=== PATIENT | female | born 1970 | race Caucasian/White ===

== ENCOUNTER → 2019-05-09 08:49 | Outpatient (BNVA) | payer MEDICARE, MEDICAID, SELFPAY | PROVIDERS: Family Provider Family Medicine; PCP Family Medicine; Visit Provider Specialist | DX: G43.711 Chronic migraine without aura, intractable, with status migrainosus (principal) | CPT/HCPCS: 64615; 99212; J0585 ==

== ENCOUNTER → 2019-06-26 10:45 | Outpatient (BNVA) | payer MEDICARE, MEDICAID, SELFPAY | PROVIDERS: Family Provider Family Medicine; PCP Family Medicine; Visit Provider Nurse Practitioner | DX: F41.0 Panic disorder [episodic paroxysmal anxiety] (principal); F33.41 Major depressive disorder, recurrent, in partial remission | CPT/HCPCS: 99213 ==

== ENCOUNTER → 2019-08-12 07:44 | Outpatient (BNVA) | payer MEDICARE, MEDICAID, SELFPAY | PROVIDERS: Family Provider Family Medicine; PCP Family Medicine; Visit Provider Social Worker | DX: F33.41 Major depressive disorder, recurrent, in partial remission (principal); F41.0 Panic disorder [episodic paroxysmal anxiety]; F43.12 Post-traumatic stress disorder, chronic | CPT/HCPCS: 90834 ==

== ENCOUNTER → 2019-08-15 08:56 | Outpatient (BNVA) | payer MEDICARE, MEDICAID, SELFPAY | PROVIDERS: Family Provider Family Medicine; PCP Family Medicine; Visit Provider Specialist | DX: G43.711 Chronic migraine without aura, intractable, with status migrainosus (principal); S06.9X9A Unspecified intracranial injury with loss of consciousness of unspecified duration, initial encounter; X58.XXXA Exposure to other specified factors, initial encounter | CPT/HCPCS: 64615; J0585 ==

== ENCOUNTER → 2019-09-23 08:39 | Outpatient (BNVA) | payer MEDICARE, MEDICAID, SELFPAY | PROVIDERS: Family Provider Family Medicine; PCP Family Medicine; Visit Provider Social Worker | DX: F41.0 Panic disorder [episodic paroxysmal anxiety] (principal); F33.41 Major depressive disorder, recurrent, in partial remission; F43.12 Post-traumatic stress disorder, chronic | CPT/HCPCS: 90834 ==

== ENCOUNTER → 2019-11-07 09:10 | Outpatient (BNVA) | payer MEDICARE, MEDICAID, SELFPAY | PROVIDERS: Family Provider Family Medicine; PCP Family Medicine; Visit Provider Specialist | DX: G43.711 Chronic migraine without aura, intractable, with status migrainosus (principal); S06.9X9A Unspecified intracranial injury with loss of consciousness of unspecified duration, initial encounter; X58.XXXA Exposure to other specified factors, initial encounter | CPT/HCPCS: 64615; J0585 ==

== ENCOUNTER → 2020-01-22 07:36 | Outpatient (BNVA) | payer MEDICARE, MEDICAID, SELFPAY | PROVIDERS: Family Provider Family Medicine; PCP Family Medicine; Visit Provider Nurse Practitioner | DX: F33.41 Major depressive disorder, recurrent, in partial remission (principal); F41.0 Panic disorder [episodic paroxysmal anxiety] | CPT/HCPCS: 99213 ==

== ENCOUNTER → 2020-01-30 09:25 | Outpatient (BNVA) | payer MEDICARE, MEDICAID, SELFPAY | PROVIDERS: Family Provider Family Medicine; PCP Family Medicine; Visit Provider Specialist | DX: G43.711 Chronic migraine without aura, intractable, with status migrainosus (principal); S06.9X9D Unspecified intracranial injury with loss of consciousness of unspecified duration, subsequent encounter | CPT/HCPCS: 64615; J0585 ==

== ENCOUNTER 2020-03-06 09:58 | Outpatient (CLI) | payer MEDICARE, MEDICAID, SELFPAY ==
--- NOTE | 2020-03-06 10:08 | MM_ITS ---
WS: [id number] Bilateral screening digital mammogram, 03/06/2020 Clinical Data: SCREENING Comparison: 11/28/2018, 10/05/2017, 09/16/2016, 09/10/2015, 09/04/2014, 08/07/2013, 07/16/2012, 11/24/2010. Findings: The breast parenchymal pattern shows heterogeneous density. No spiculated masses or clustered calcifi cations are seen. There are no secondary signs of carcinoma. The nodule in the lateral aspect of the left breast has decreased to 1.1 cm. It has been diagnosed as a cyst. There are lymph nodes in both a xilla. Impression: 1. Negative bilateral mammogram unchanged. 2. Recommend annual screening mammograms. MM/[id number] BIRADS: 2-Benign FOLLOW UP: 1 Year Follow-up The CAD food checkers and cashiers supervisor was used.
== END 2020-03-06 09:59 | disposition home or self-care (01) ==
LOC: RADSHAW 10:02
PROVIDERS: Family Provider Family Medicine; PCP Family Medicine; Visit Provider Family Medicine
DX: Z12.31 Encounter for screening mammogram for malignant neoplasm of breast (principal)
CPT/HCPCS: 77067

== ENCOUNTER → 2020-04-30 08:54 | Outpatient (BNVA) | payer MEDICARE, MEDICAID, SELFPAY | PROVIDERS: Family Provider Family Medicine; PCP Family Medicine; Visit Provider Specialist | DX: G43.711 Chronic migraine without aura, intractable, with status migrainosus (principal); S06.9X9D Unspecified intracranial injury with loss of consciousness of unspecified duration, subsequent encounter; Y93.9 Activity, unspecified | CPT/HCPCS: 64615; J0585 ==

== ENCOUNTER → 2020-07-23 09:11 | Outpatient (BNVA) | payer MEDICARE, MEDICAID, SELFPAY | PROVIDERS: Family Provider Family Medicine; PCP Family Medicine; Visit Provider Specialist | DX: G43.709 Chronic migraine without aura, not intractable, without status migrainosus (principal); S06.9X9A Unspecified intracranial injury with loss of consciousness of unspecified duration, initial encounter; Y93.9 Activity, unspecified | CPT/HCPCS: 64615; J0585 ==

== ENCOUNTER → 2020-09-29 11:01 | Outpatient (BNVA) | payer MEDICARE, MEDICAID, SELFPAY | PROVIDERS: Family Provider Family Medicine; PCP Family Medicine; Visit Provider Nurse Practitioner | DX: F33.41 Major depressive disorder, recurrent, in partial remission (principal); F41.0 Panic disorder [episodic paroxysmal anxiety] | CPT/HCPCS: 99214 ==

== ENCOUNTER → 2020-10-15 08:50 | Outpatient (BNVA) | payer MEDICARE, MEDICAID, SELFPAY | PROVIDERS: Family Provider Family Medicine; PCP Family Medicine; Visit Provider Specialist | DX: G43.711 Chronic migraine without aura, intractable, with status migrainosus (principal) | CPT/HCPCS: 64615; J0585 ==

== ENCOUNTER → 2021-01-14 09:45 | Outpatient (BNVA) | payer MEDICARE, MEDICAID, SELFPAY | PROVIDERS: Family Provider Family Medicine; PCP Family Medicine; Visit Provider Specialist | DX: G43.711 Chronic migraine without aura, intractable, with status migrainosus (principal); F33.41 Major depressive disorder, recurrent, in partial remission | CPT/HCPCS: 64615; J0585 ==

== ENCOUNTER → 2021-03-25 10:30 | Outpatient (BNVA) | payer MEDICARE, MEDICAID, SELFPAY | PROVIDERS: Family Provider Family Medicine; PCP Family Medicine; Visit Provider Nurse Practitioner | DX: F33.41 Major depressive disorder, recurrent, in partial remission (principal); F41.0 Panic disorder [episodic paroxysmal anxiety] | CPT/HCPCS: 99214 ==

== ENCOUNTER → 2021-04-08 10:05 | Outpatient (BNVA) | payer MEDICARE, MEDICAID, SELFPAY | PROVIDERS: Family Provider Family Medicine; PCP Family Medicine; Visit Provider Specialist | DX: G43.711 Chronic migraine without aura, intractable, with status migrainosus (principal) | CPT/HCPCS: 64615; J0585 ==

== ENCOUNTER 2021-05-13 11:23 | Outpatient (CLI) | payer MEDICARE, MEDICAID, SELFPAY ==
--- NOTE | 2021-05-13 11:36 | MM_ITS ---
WS: [id number] BILATERAL SCREENING DIGITAL MAMMOGRAM WITH CAD HISTORY: SCREENING COMPARISON: 03/06/2020, 11/28/2018 and 10/05/2017 Bilateral CC and MLO views submitted. Computer aided detection analyzed. Breast composition: The breasts are heterogeneously dense, which may obscure small masses. No suspici ous masses, microcalcifications or architectural distortion. Long-term stability to 10 mm mass in the LEFT breast posteriorly at 3:00. There are additional scattered asymmetries which are stable also. MM/[id number] IMPRESSION: BI-RADS: 2-Benign FOLLOW UP: 1 Year Follow-up
== END 2021-05-13 11:24 | disposition home or self-care (01) ==
LOC: RADSHAW 11:31
PROVIDERS: Family Provider Family Medicine; PCP Family Medicine; Visit Provider Family Medicine
DX: Z12.31 Encounter for screening mammogram for malignant neoplasm of breast (principal)
CPT/HCPCS: 77067

== ENCOUNTER → 2021-07-01 09:33 | Outpatient (BNVA) | payer MEDICARE, MEDICAID, SELFPAY | PROVIDERS: Family Provider Family Medicine; PCP Family Medicine; Visit Provider Specialist | DX: G43.711 Chronic migraine without aura, intractable, with status migrainosus (principal) | CPT/HCPCS: 64615; J0585 ==

== ENCOUNTER → 2021-09-23 09:09 | Outpatient (BNVA) | payer MEDICARE, MEDICAID, SELFPAY | PROVIDERS: Family Provider Family Medicine; PCP Family Medicine; Visit Provider Specialist | DX: G43.711 Chronic migraine without aura, intractable, with status migrainosus (principal) | CPT/HCPCS: 64615; J0585 ==

== ENCOUNTER → 2021-10-07 10:40 | Outpatient (BNVA) | payer MEDICARE, MEDICAID, SELFPAY | PROVIDERS: Family Provider Family Medicine; PCP Family Medicine; Visit Provider Nurse Practitioner | DX: F33.41 Major depressive disorder, recurrent, in partial remission (principal); F41.0 Panic disorder [episodic paroxysmal anxiety] | CPT/HCPCS: 99214 ==

== ENCOUNTER → 2021-12-16 09:32 | Outpatient (BNVA) | payer MEDICARE, MEDICAID, SELFPAY | PROVIDERS: Family Provider Family Medicine; PCP Family Medicine; Visit Provider Specialist | DX: G43.711 Chronic migraine without aura, intractable, with status migrainosus (principal) | CPT/HCPCS: 64615; J0585 ==

== ENCOUNTER 2022-01-07 07:43 | Day surgery (SDC) | payer MEDICARE, MEDICAID, SELFPAY ==
[2022-01-05 15:53] VITALS: BMI 26.4
--- NOTE | 2022-01-07 06:32 | P.HP_ITS ---
Same Day Surgery H&P Indication for Procedure/HPI DATE OF PROCEDURE: January 07, 2022 CHIEF COMPLAINT/INDICATIONFOR SURGICAL PROCEDURE: Screening colonoscopy PREOP DIAGNOSIS: Screening colonoscopy PLANNED PROCEDURE: Operation Date: 01/07/22 09:00 Proposed Procedures p Colonoscopy 90582,Z12.11(Not Applicable) - Abdullahi Desir MD ROS All systems have been reviewed negative except as for the above or per problem list. Medications/Allergies* Home Medications Medication Instructions Recorded Confirmed Type bumetanide 2 mg tablet 2 mg PO DAILY 05/09/19 01/07/22 History loratadine 10 mg tablet (Claritin) 10 mg PO DAILY 05/09/19 01/07/22 History meloxicam 7.5 mg tablet 7.5 mg PO DAILY 05/09/19 01/07/22 History montelukast 10 mg tablet 10 mg PO DAILY 05/09/19 01/07/22 History (Singulair) oxybutynin chloride 5 mg tablet 5 mg PO TID 05/09/19 01/07/22 History simvastatin 10 mg tablet 10 mg PO DAILY 05/09/19 01/07/22 History potassium chloride 20 mEq 20 meq PO DAILY 10/07/21 01/07/22 History tablet,extended release topiramate 50 mg tablet 50 mg PO BID PRN Headache 01/05/22 01/07/22 History clonazepam 0.5 mg tablet 0.5 mg PO BID 01/07/22 01/07/22 History desvenlafaxine succinate 100 mg 100 mg PO DAILY PRN leg swell up 01/07/22 01/07/22 History tablet,extended release 24 hr pretty bad (Pristiq) Allergies/Adverse Reactions Allergy/AdvReac Type Severity Reaction Status Date / Time doxycycline Allergy Unknown Uknown Verified 01/07/22 08:40 Pertinent History/Comorbid Conditions* Medical History (Updated 06/26/19 @ 11:04 by DEBBIE Mendoza) Major depressive disorder, recurrent, in partial remission Panic disorder [episodic paroxysmal anxiety] Family History (Updated 05/09/19 @ 10:15 by Madison Lewis RN) Psychiatric illness Cancer Grandmother Hypertension Social History Smoking and tobacco status: never smoked Second hand smoke exposure: Yes Alcohol intake: never History of recent travel: No Pertinent Exam Findings alert, oriented x 3, clear to auscultation bilaterally, regular rate & rhythm and procedure specific exam findings (Normal exam nontender nondistended soft) Recommendations Surgery/Procedure today (Colonoscopy with possible biopsy) Other Plans: Plan of care; After thorough history and physical examination and reviewing the chart, plan to perform screening colonoscopy. I discussed with the patient in details the risks,benefits,alternatives and indications.The risk of aspiration, bleeding, soft tissue injury, perforation of the colon and other potential concomitant complications were explained to the patient in details,also the potential need for Laproscoy/Laparotomy to repair any related complications including but not limited to colectomy and or Closotomy.The patient understood this well and did agree to proceed. Rationale was carefully and clearly discussed with the patient.Appropriate informed consent have been reviewed and signed All questions have been answered and all concerns have been addressed to patient's satisfaction. Verbal and written Instructions were given to the patient for colonoscopy prep Coding Level of Care Code Acute Cotton Weigher Operator for Doug Bliss
[2022-01-07 08:04] VITALS: BP 113/74; PULSE 95; RESP 18; TEMP 36.9; O2SAT 100
[2022-01-07] MEDS: sodium chloride 0.9% 1,000 ML 30 ML IV (08:36)
--- NOTE | 2022-01-07 08:51 | P.ANESASSM_ITS ---
Pre-Anesthetic Assessment Height/Weight: Height 1.55 m Weight 63.503 kg Temp Pulse Resp BP Pulse Ox O2 Del Method 98.5 F 95 18 113/74 100 01/07/22 08:04 01/07/22 08:04 01/07/22 08:04 01/07/22 08:04 01/07/22 08:04 01/07/22 08:04 Preop Diagnosis: Screening colonoscopy Operation Date: 01/07/22 09:00 Proposed Procedures p Colonoscopy 89905,Z12.11(Not Applicable) - Abdullahi Desir MD Familial anesthetic complications: None Was Beta Kavya taken within 24 hours: N/A Was Clonidine taken within 24 hours: N/A Last intake: Intake Last Liquid Date 01/06/22 Last Liquid Time 20:00 Last Solid Date 01/05/22 Last Solid Time 17:30 Social No alcohol and No tobacco Exam alert, oriented x 3, clear to auscultation bilaterally and regular rate & rhythm Airway Submandibular: within normal limits Cervical ROM: within normal limits Mallampati: Class I Dentition: chipped History/ROS No significant complaints Pulmonary None reported CV/HEM None reported None reported Hepatic None reported GI None reported Metabolic None reported Musc/skel None reported Neuropsych Anxiety, Depression and Headache Anesthetic Plan ASA status: 2 Anesthesia: Anesthesia Evaluation, General and MAC Other: I discussed with the patient risks, goals, and benefits of MAC and general anesthesia. We discussed spectrum of MAC anesthesia including conversion to general as well as possibility of recall of intraoperative stimuli including discomfort/pain. Patient agrees to proceed with MAC. Risk of > 500 ml blood loss (7ml/kg in children): No Medications/Allergies Home Medications Medication Instructions Recorded Confirmed Last Taken Type bumetanide 2 mg tablet 2 mg PO DAILY 05/09/19 01/07/22 Unknown History loratadine 10 mg tablet (Claritin) 10 mg PO DAILY 05/09/19 01/07/22 01/06/22 History meloxicam 7.5 mg tablet 7.5 mg PO DAILY 05/09/19 01/07/22 01/06/22 History montelukast 10 mg tablet 10 mg PO DAILY 05/09/19 01/07/22 01/06/22 History (Singulair) oxybutynin chloride 5 mg tablet 5 mg PO TID 05/09/19 01/07/22 01/06/22 History simvastatin 10 mg tablet 10 mg PO DAILY 05/09/19 01/07/22 01/06/22 History potassium chloride 20 mEq 20 meq PO DAILY 10/07/21 01/07/22 01/06/22 History tablet,extended release peg 3350-electrolytes 236 240 ml PO Q10M #4,000 mL 12/09/21 01/07/22 01/06/22 Rx gram-22.74 gram-6.74 gram-5.86 gram solution (Golytely) aripiprazole 2 mg tablet (Abilify) 2 mg PO DAILY #30 tabs 12/20/21 01/07/22 01/06/22 Rx doxepin 50 mg capsule 50 mg PO DAILY #30 caps 12/20/21 01/07/22 01/06/22 Rx fluoxetine 40 mg capsule (Prozac) 40 mg PO DAILY #30 caps 12/20/21 01/07/22 01/06/22 Rx ropinirole 3 mg tablet 3 mg PO DAILY #30 tabs 12/20/21 01/07/22 01/06/22 Rx topiramate 50 mg tablet 50 mg PO BID PRN Headache 01/05/22 01/07/22 01/06/22 History clonazepam 0.5 mg tablet 0.5 mg PO BID 01/07/22 01/07/22 01/07/22 History desvenlafaxine succinate 100 mg 100 mg PO DAILY PRN leg swell up 01/07/22 01/07/22 01/06/22 History tablet,extended release 24 hr pretty bad (Pristiq) Allergies Allergy/AdvReac Type Severity Reaction Status Date / Time doxycycline Allergy Unknown [facility] Verified 01/07/22 08:40 Current Medications Generic Name Dose Route Start Last Admin Trade Name Freq PRN Reason Stop Dose Admin Sodium Chloride 1,000 mls @ 30 mls/hr 01/07/22 08:00 01/07/22 08:36 Sodium Chloride 0.9% IV 01/08/22 07:59 30 mls/hr .Q24H EDITH Administration PFSH Anesthesia Medical History Major depressive disorder, recurrent, in partial remission Panic disorder [episodic paroxysmal anxiety] Family History Grandmother Cancer Other Hypertension Psychiatric illness Social History Smoking and tobacco status: never smoked Second hand smoke exposure: Yes Alcohol intake: never History of recent travel: No Data Anesthesia Cardiac Studies: No Data to Display
[2022-01-07 09:28] VITALS: BP 104/74; PULSE 82; RESP 18; TEMP 36.1; O2SAT 99
--- NOTE | 2022-01-07 09:32 | ANE.PACU2 ---
Inpatient post-anesthesia follow up: Airway intact: Yes Vital signs: Temperature 98.5 F Pulse Rate 95 Respiratory Rate 18 Blood Pressure 113/74 Pulse Oximetry 100 Oxygen Delivery Me thod Room Air Oxygen Flow Rate Fraction of Inspir ed Oxygen Hydration adequate: Yes Nausea and vomiting: No Pain level: 1 Mental status: Baseline
[2022-01-07 09:40] VITALS: BP 113/75; PULSE 86; RESP 18; O2SAT 98
== END 2022-01-07 09:52 | disposition home or self-care (01) ==
PROVIDERS: PCP Family Medicine; Visit Provider Surgery
PROC: 0DJD8ZZ Inspection of Lower Intestinal Tract, Via Natural or Artificial Opening Endoscopic (ICD-10-PCS; CPT 45378; principal; 2022-01-07 09:00)
DX: Z12.11 Encounter for screening for malignant neoplasm of colon (principal)
CPT/HCPCS: 45378; G0121; J2704; J7030

== ENCOUNTER → 2022-03-10 09:29 | Outpatient (BNVA) | payer MEDICARE, MEDICAID, SELFPAY | PROVIDERS: PCP Family Medicine; Visit Provider Specialist | DX: G43.711 Chronic migraine without aura, intractable, with status migrainosus (principal) | CPT/HCPCS: 64615; J0585 ==

== ENCOUNTER 2022-05-09 14:09 | Outpatient (CLI) | payer MEDICARE, MEDICAID, SELFPAY ==
--- NOTE | 2022-05-09 14:16 | MM_ITS ---
WS: [id number] BILATERAL 3D TOMOSYNTHESIS DIGITAL SCREENING MAMMOGRAPHY WITH CAD CLINICAL INFORMATION: SCREENING HISTORY: Screening mammogram. No current complaints. COMPARISON: 2021 TECHNIQUE: Bilateral CC and MLO views. FINDINGS: The breasts are composed of heterogeneous fibroglandular density tissue, which can limit the detectio n of small underlying mass lesions. No suspicious mass, asymmetry, calcifications, or architectural d istortion. No evidence of malignancy. Stable 10 mm ovoid asymmetry outer posterior LEFT breast unchan ged . A few incidental punctate calcifications. MM/[id number] IMPRESSION: BI-RADS: 2-Benign FOLLOW UP: 1 Year Follow-up Recommend return to annual screening mammography.
== END 2022-05-09 14:10 | disposition home or self-care (01) ==
LOC: RAD 14:12
PROVIDERS: PCP Family Medicine; Visit Provider Family Medicine
DX: Z12.31 Encounter for screening mammogram for malignant neoplasm of breast (principal)
CPT/HCPCS: 77063; 77067

== ENCOUNTER → 2022-05-31 09:14 | Outpatient (BNVA) | payer MEDICARE, MEDICAID, SELFPAY | PROVIDERS: PCP Family Medicine; Visit Provider Nurse Practitioner | DX: Z79.899 Other long term (current) drug therapy (principal) | CPT/HCPCS: 80061; 83036 ==

== ENCOUNTER → 2022-10-13 14:39 | Outpatient (BNVA) | payer MEDICARE, MEDICAID, SELFPAY | PROVIDERS: PCP Family Medicine; Visit Provider Specialist | DX: G43.711 Chronic migraine without aura, intractable, with status migrainosus (principal) | CPT/HCPCS: 64615; J0585 ==

== ENCOUNTER → 2023-04-27 09:09 | Outpatient (BNVA) | payer MEDICAID, SELFPAY | PROVIDERS: PCP Family Medicine; Visit Provider Specialist | DX: G43.711 Chronic migraine without aura, intractable, with status migrainosus (principal) | CPT/HCPCS: 64615 ==

== ENCOUNTER 2023-05-10 08:34 | Outpatient (CLI) | payer MEDICARE, MEDICAID, SELFPAY ==
--- NOTE | 2023-05-10 08:45 | MM_ITS ---
WS: [id number] VIEWS: MLO and CC views both breasts. 3D digital tomosynthesis is also included in this exam. Comparison made with prior exam of 09/04/2014, 519--2016,. 09/16/2016, 10/05/2017, 11/28/2018, 03/06/2020, 05/13/2021, 05/09/2022, Findings: There was no sign of mass, architectural distortion or suspicious calcification in either breast. Sta ble appearing nodular densities in both breasts. The breasts are extremely dense which lowers the sen sitivity of mammography. Impression: MM/[id number] BI-RADS: 2-Benign finding. FOLLOW-UP: 1 Year Follow-up This mammogram was also analyzed by the Computer Aided Detection System R2 Imag e Central Aisle Cashier.
== END 2023-05-10 08:35 | disposition home or self-care (01) ==
LOC: RAD 08:35
PROVIDERS: PCP Family Medicine; Visit Provider Family Medicine
DX: Z12.31 Encounter for screening mammogram for malignant neoplasm of breast (principal)
CPT/HCPCS: 77063; 77067

== ENCOUNTER 2023-07-26 20:58 | Inpatient (IN) | payer MEDICARE, MEDICAID, SELFPAY ==
--- NOTE | 2023-07-26 21:00 | ED.C_ITS ---
HPI - Psych 2 General: Chief Complaint: Psychiatric Symptoms Stated Complaint: wrist lac, mental health eval Time Seen by Provider: 07/26/23 20:59 Source: patient and police Limitations: no limitations History of Present Illness: 53-year-old female history depression st ates that she has been increasingly just pressed with a lot of stress. States that she has been having suicidal thoughts she got a knife and was going to cut her wrist she did cut her wrist but is very superficial but she states she has a plan to kill herself by cutting her wrist. She denies any worsening improving factors. Associated symptoms: Reports depression and suicidal ideation Review of Systems 2 Const: Denies: fever(s), chills, body aches or change in appetite ENMT: Denies: throat pain or dental pain Card: Denies: chest pain Resp: Denies: dyspnea GI: Denies: abdominal pain, nausea, vomiting or diarrhea Musc: Denies: neck pain or back pain Skin/Breast: Denies: rash Neuro: Denies: headache(s) Psych: Reports: depression and suicidal ideation PFS ED 2 PFSH: Medical History (Updated 07/26/23 @ 21:13 by Vivi Jose MD) Major depressive disorder, recurrent, in partial remission Panic disorder [episodic paroxysmal anxiety] Family History Grandmother Cancer Other Hypertension Psychiatric illness Social History Smoking and tobacco/nicotine status: never used tobacco/nicotine Second hand smoke exposure: Yes Alcohol intake: never Substance/Drug Use: never Physical Exam 2 Const: COMMON NORMALS: no acute distress, patient oriented x3 and healthy appearing HENMT: COMMON NORMALS: normocephalic and atraumatic HEAD & SCALP: n ormocephalic and atraumatic Eye: COMMON NORMALS: Equal, round and reactive pupils present and EOMs intact bilaterally PUPIL: Yes Equal, round and reactive pupils present Neck/C-Spine: COMMON NORMALS: full ROM and supple Chest: COMMONS NORMALS: normal inspection of the chest Resp: COMMON NORMALS: normal respiratory effort Cardio: COMMON NORMALS: regular rate, regular rhythm and No murmurs present (Cardio) RATE: regular rate RHYTHM: regular rhythm GI: COMMON NORMALS: no masses Extremity: COMMON NORMALS: normal to inspection and full ROM Neuro: COMMON NORMALS: patient oriented x3, moves all extremities and no focal motor deficits Psych: COMMON NORMALS: mental status grossly normal, Normal thought process present and cooperative THOUGHT PROCESS: Normal thought process present T HOUGHT CONTENT: Yes Suicidality present Skin: NARRATIVE SKIN EXAM: Very superficial laceration to left wrist no bleeding at this time Course 2 Vital Signs: Vital signs: Vital Signs Temperature 98.3 F 07/26/23 21:02 Pulse Rate 69 07/26/23 21:02 Respiratory Rate 18 07/26/23 21:02 Blood Pressure 122/77 07/26/23 21:02 Pulse Oximetry 96 07/26/23 21:02 Oxygen Delivery Me thod Room Air 07/26/23 21:02 [facility] - Psych Medical Decision Making Patient presents here with suicidal ideation patient is placed under 96-hour hold she is medically cleared and will admit to the psych [facility]. Medical Records I reviewed the patient's medical records. Lab Data I reviewed the patient's lab results. 07/26/23 21:03 07/26/23 21:03 Laboratory Results WBC 7.10 10^3/uL (3.29-11.43) 07/26/23 21:03 RBC 4.10 10^6/uL (3.85-5.65) 07/26/23 21:03 Hgb 11.60 g/dL (11.27-16.99) 07/26/23 21:03 Hct 36.6 % (36-47) 07/26/23 21:03 MCV 89.3 fl (85-98) 07/26/23 21:03 MCH 28.3 pg (27-33) 07/26/23 21:03 MCHC 31.7 g/dL (30-55) 07/26/23 21:03 RDW 13.7 % (12.1-15.1) 07/26/23 21:03 Plt Count 349 10^3/cmm (157-399) 07/26/23 21:03 MPV 8.9 fL (7.4-10.4) 07/26/23 21:03 Neut % (Auto) 59.9 % 07/26/23 21:03 Lymph % (Auto) 29.0 % 07/26/23 21:03 [place] % (Auto) 8.2 % 07/26/23 21:03 Eos % (Auto) 1.5 % 07/26/23 21:03 Baso % (Auto) 0.8 % 07/26/23 21:03 Neut # (Auto) 4.25 10^3/uL (1.8-7.7) 07/26/23 21:03 Lymph # (Auto) 2.1 10^3/uL (0.8-4.8) 07/26/23 21:03 [place] # (Auto) 0.6 10^3/uL (0.2-0.9) 07/26/23 21:03 Eos # (Auto) 0.1 10^3/uL (0.0-0.8) 07/26/23 21:03 Baso # (Auto) 0.1 10^3/uL (0.0-0.1) 07/26/23 21:03 Nucleated RBC % (auto) 0 % 07/26/23 21:03 Nucleated RBCs # 0.0 /100WBC 07/26/23 21:03 All radiology interpretation(s) finalized by discharge Discharge Plan Discharge Patient Disposition: Admitted As Inpatient Admit Provider: Salazar Rosales Clinical Impression: Suicidal ideation Condition: Stable Coding Level of Care Code ED [employer] for Doug Bliss
[2023-07-26 21:02] VITALS: BP 122/77; PULSE 69; RESP 18; TEMP 36.8; O2SAT 96; BMI 31.1
[2023-07-26 21:11] LABS: Basophils # 0.1 10^3/uL (0.0-0.1); Basophils % 0.8 %; Eosinophils # 0.1 10^3/uL (0.0-0.8); Eosinophils % 1.5 %; Hematocrit 36.6 % (36-47); Lymphocytes # 2.1 10^3/uL (0.8-4.8); Mean Corpuscular HGB Conc 31.7 g/dL (30-55); Mean Corpuscular Hemoglobin 28.3 pg (27-33); Mean Corpuscular Volume 89.3 fl (85-98); Mean Platelet Volume 8.9 fL (7.4-10.4); Monocytes # 0.6 10^3/uL (0.2-0.9); Monocytes % 8.2 %; Neutrophils # 4.25 10^3/uL (1.8-7.7); Neutrophils % 59.9 %; Nucleated Red Blood Cells % 0 %; Platelet Count 349 10^3/cmm (157-399); Red Cell Distribution Width 13.7 % (12.1-15.1)
--- NOTE | 2023-07-26 21:21 | PC.NURSE ---
96 Hour Involuntary Hold Patient Rights have been read to the patient and a copy of the same has been given to her. Patient verbally acknowledges understanding of Right. Quantity Surveyor Rox Gramajo was present at bedside at the time of presentation of Rights.
--- NOTE | 2023-07-26 21:25 | DCPLANNER ---
96 hour hold paperwork mailed to [facility].
[2023-07-26 21:28] LABS: Alanine Aminotransferase 16 U/L (0-33); Albumin Level 4.2 g/dL (3.5-5.2); Alcohol Level 80 mg/dL (0-10); Alkaline Phosphatase 84 U/L (35-105); Anion Gap 18.4 (5-19); Aspartate Amino Transferase 15 U/L (0-32); Blood Urea Nitrogen 7 mg/dL (6-20); Calcium 9.7 mg/dL (8.5-10.5); Carbon Dioxide 22 mmol/L (22-29); Chloride 103 mmol/L (98-107); Creatinine Clr Calc Pharmacy 65.3564; Globulin 3.1 g/dL (1.3-4.6); Glucose 89 mg/dL (65-115); Osmolality Calculated 287 mOsm/kg (285-295); Potassium 3.4 mmol/L (3.5-5.1); Sodium 140 mmol/L (136-145); Total Bilirubin 0.2 mg/dL (0.15-1.2); Total Protein 7.3 g/dL (6.6-8.7)
[2023-07-26 21:29] LABS: Acetaminophen < 5.0 ug/mL (10-30); Salicylate < 0.3 mg/dL (3-10)
[2023-07-26 21:36] LABS: Amphetamines Screen Urine Negative (Negative); Barbiturates Screen Urine Negative (Negative); Benzodiazepines Screen Urine Negative (Negative); Cocaine Screen Urine Negative (Negative); Opiate Screen Urine Negative (Negative); PCP Screen Urine Negative (Negative); THC Screen Urine Negative (Negative)
[2023-07-26 22:05] VITALS: BP 112/76; PULSE 79; RESP 18; TEMP 36.7; O2SAT 99
[2023-07-26] MEDS: doxepin 50 mg Capsule PO (23:05)
[2023-07-26] MEDS: meloxicam 7.5 mg tablet PO (23:05)
[2023-07-26] MEDS: ARIPiprazole 2 mg Tablet PO (23:05)
[2023-07-26] MEDS: montelukast sodium 10 mg Tablet PO (23:05)
[2023-07-26] MEDS: oxybutynin 5 mg Tablet PO (23:06)
[2023-07-26] MEDS: desvenlafaxine 50 mg Tablet 100 MG PO (23:06)
[2023-07-26] MEDS: ropinirole 1 mg Tablet 3 MG PO (23:06)
[2023-07-26] MEDS: fluoxetine 20 mg Capsule 40 MG PO (23:07)
[2023-07-27 06:00] VITALS: BP 93/63; PULSE 93; RESP 18; TEMP 36.7; O2SAT 99
[2023-07-27] MEDS: oxybutynin 5 mg Tablet PO ×3 (08:47→21:03)
[2023-07-27] MEDS: topiramate 25 mg Tablet 50 MG PO ×2 (08:47→17:14)
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
[2023-07-27 14:00] VITALS: BP 107/74; PULSE 96; RESP 17; TEMP 36.7; O2SAT 97
[2023-07-27 19:54] VITALS: BP 97/65; PULSE 89; RESP 14; TEMP 36.8; O2SAT 100
[2023-07-27] MEDS: meloxicam 7.5 mg tablet PO (21:02)
[2023-07-27] MEDS: ropinirole 1 mg Tablet 3 MG PO (21:02)
[2023-07-27] MEDS: montelukast sodium 10 mg Tablet PO (21:02)
[2023-07-27] MEDS: desvenlafaxine 50 mg Tablet 100 MG PO (21:02)
[2023-07-27] MEDS: fluoxetine 20 mg Capsule 60 MG PO (21:03)
[2023-07-27] MEDS: doxepin 50 mg Capsule PO (21:03)
[2023-07-27] MEDS: ARIPiprazole 10 mg Tablet 5 MG PO (21:03)
[2023-07-27] MEDS: docusate sodium 100 mg Capsule 200 MG PO (21:11)
[2023-07-28 06:00] VITALS: BP 86/62; PULSE 85; RESP 16; TEMP 36.7; O2SAT 99
[2023-07-28] MEDS: oxybutynin 5 mg Tablet PO ×3 (08:36→20:08)
[2023-07-28] MEDS: topiramate 25 mg Tablet 50 MG PO ×2 (08:38→17:48)
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
[2023-07-28 13:15] VITALS: BP 90/61; PULSE 83; RESP 16; TEMP 36.6; O2SAT 99
[2023-07-28] MEDS: fluoxetine 20 mg Capsule 60 MG PO (20:07)
[2023-07-28] MEDS: ARIPiprazole 10 mg Tablet 5 MG PO (20:08)
[2023-07-28] MEDS: desvenlafaxine 50 mg Tablet 100 MG PO (20:08)
[2023-07-28] MEDS: montelukast sodium 10 mg Tablet PO (20:08)
[2023-07-28] MEDS: meloxicam 7.5 mg tablet PO (20:08)
[2023-07-28] MEDS: ropinirole 1 mg Tablet 3 MG PO (20:08)
[2023-07-28] MEDS: doxepin 50 mg Capsule PO (20:08)
[2023-07-28 20:17] VITALS: BP 111/70; PULSE 90; RESP 18; TEMP 36.5; O2SAT 96
[2023-07-29 06:00] VITALS: BP 105/67; PULSE 79; RESP 17; TEMP 37; O2SAT 98
[2023-07-29] MEDS: oxybutynin 5 mg Tablet PO ×3 (08:31→19:55)
[2023-07-29] MEDS: topiramate 25 mg Tablet 50 MG PO ×2 (08:31→17:49)
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
[2023-07-29 13:59] VITALS: BP 88/59; PULSE 85; RESP 16; TEMP 36.8; O2SAT 95
[2023-07-29] MEDS: desvenlafaxine 50 mg Tablet 100 MG PO (19:53)
[2023-07-29] MEDS: ARIPiprazole 10 mg Tablet 5 MG PO (19:53)
[2023-07-29 19:54] VITALS: BP 107/74; PULSE 90; RESP 18; TEMP 36.7; O2SAT 98
[2023-07-29] MEDS: ropinirole 1 mg Tablet 3 MG PO (19:54)
[2023-07-29] MEDS: meloxicam 7.5 mg tablet PO (19:55)
[2023-07-29] MEDS: docusate sodium 100 mg Capsule 200 MG PO (19:55)
[2023-07-29] MEDS: montelukast sodium 10 mg Tablet PO (19:56)
[2023-07-29] MEDS: fluoxetine 20 mg Capsule 60 MG PO (19:56)
[2023-07-29] MEDS: doxepin 50 mg Capsule PO (19:56)
[2023-07-30 06:00] VITALS: BP 94/66; PULSE 74; RESP 16; TEMP 36.7; O2SAT 98
[2023-07-30] MEDS: oxybutynin 5 mg Tablet PO ×3 (08:22→20:21)
[2023-07-30] MEDS: topiramate 25 mg Tablet 50 MG PO ×2 (08:22→17:57)
[2023-07-30 14:00] VITALS: BP 93/67; PULSE 86; RESP 16; TEMP 36.8; O2SAT 100
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
[2023-07-30] MEDS: docusate sodium 100 mg Capsule 200 MG PO (20:20)
[2023-07-30] MEDS: doxepin 50 mg Capsule PO (20:20)
[2023-07-30] MEDS: magnesium hydroxide 30 mL UDC PO (20:20)
[2023-07-30] MEDS: montelukast sodium 10 mg Tablet PO (20:20)
[2023-07-30] MEDS: ARIPiprazole 10 mg Tablet 5 MG PO (20:20)
[2023-07-30] MEDS: meloxicam 7.5 mg tablet PO (20:20)
[2023-07-30] MEDS: desvenlafaxine 50 mg Tablet PO (20:21)
[2023-07-30] MEDS: fluoxetine 20 mg Capsule 60 MG PO (20:21)
[2023-07-30] MEDS: ropinirole 1 mg Tablet 3 MG PO (20:21)
[2023-07-30 20:28] VITALS: BP 95/67; PULSE 95; RESP 18; TEMP 36.4; O2SAT 99
[2023-07-31 06:00] VITALS: BP 92/66; PULSE 76; RESP 18; TEMP 36.6; O2SAT 98
[2023-07-31] MEDS: topiramate 25 mg Tablet 50 MG PO ×2 (07:58→17:56)
[2023-07-31] MEDS: oxybutynin 5 mg Tablet PO ×3 (07:58→20:03)
[2023-07-31 14:00] VITALS: BP 108/75; PULSE 70; RESP 16; TEMP 36.6; O2SAT 95
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
[2023-07-31] MEDS: fluoxetine 20 mg Capsule 60 MG PO (20:02)
[2023-07-31] MEDS: montelukast sodium 10 mg Tablet PO (20:02)
[2023-07-31] MEDS: docusate sodium 100 mg Capsule 200 MG PO (20:02)
[2023-07-31] MEDS: ropinirole 1 mg Tablet 3 MG PO (20:02)
[2023-07-31] MEDS: doxepin 50 mg Capsule PO (20:03)
[2023-07-31] MEDS: ARIPiprazole 10 mg Tablet 5 MG PO (20:03)
[2023-07-31] MEDS: desvenlafaxine 50 mg Tablet 25 MG PO (20:03)
[2023-07-31] MEDS: meloxicam 7.5 mg tablet PO (20:03)
[2023-07-31 20:39] VITALS: BP 104/72; PULSE 79; RESP 18; TEMP 36.5; O2SAT 99
[2023-08-01 06:00] VITALS: BP 91/61; PULSE 86; RESP 17; TEMP 36.7; O2SAT 99
[2023-08-01 09:50] VITALS: PULSE 76; RESP 15; O2SAT 93
[2023-08-01] MEDS: topiramate 25 mg Tablet 50 MG PO (11:10)
[2023-08-01] MEDS: oxybutynin 5 mg Tablet PO ×2 (11:11→15:27)
--- NOTE | 2023-08-01 12:52 | DCPLANNER ---
IMM completed 08/01/23 @ 6720. Pt was given a copy of her rights and she stated she understood her rights.
[2023-08-01 13:51] VITALS: PULSE 76; RESP 15; O2SAT 93
[2023-08-01 14:00] VITALS: BP 105/71; PULSE 83; RESP 16; TEMP 36.6; O2SAT 100
[2023-08-01 14:03] VITALS: BP 105/71; PULSE 76; RESP 15; TEMP 36.6; O2SAT 93
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
== END 2023-08-01 15:46 | disposition home or self-care (01) | DRG 885 ==
LOC: ER 21:18 → NP 21:20
PROVIDERS: Admitting Provider Psychiatry & Neurology Psychiatry; Emergency Provider Emergency Medicine; PCP Family Medicine; Visit Provider Psychiatry & Neurology Psychiatry
DX: F33.9 Major depressive disorder, recurrent, unspecified (principal); R45.851 Suicidal ideations; F41.0 Panic disorder [episodic paroxysmal anxiety]; F10.20 Alcohol dependence, uncomplicated; Y90.4 Blood alcohol level of 80-99 mg/100 ml; Z91.410 Personal history of adult physical and sexual abuse; R45.88 Nonsuicidal self-harm
CPT/HCPCS: 36415; 80053; 80306; 80307; 85025; 97150; 97165; 99285

== ENCOUNTER → 2023-09-07 08:11 | Outpatient (BNVA) | payer MEDICARE, MEDICAID, SELFPAY | PROVIDERS: PCP Family Medicine; Visit Provider Specialist | DX: G43.711 Chronic migraine without aura, intractable, with status migrainosus (principal) | CPT/HCPCS: 64615 ==

== ENCOUNTER → 2023-10-23 09:37 | Outpatient (BNVA) | payer MEDICARE, MEDICAID, OTHER, SELFPAY | PROVIDERS: PCP Family Medicine; Visit Provider Nurse Practitioner | DX: Z79.899 Other long term (current) drug therapy (principal) | CPT/HCPCS: 80061; 83036 ==

== ENCOUNTER → 2023-12-21 07:57 | Outpatient (BNVA) | payer MEDICARE, MEDICAID, SELFPAY | PROVIDERS: PCP Family Medicine; Visit Provider Specialist | DX: G43.711 Chronic migraine without aura, intractable, with status migrainosus (principal) | CPT/HCPCS: 64615 ==

== ENCOUNTER → 2024-03-29 08:00 | Outpatient (BNVA) | payer MEDICARE, MEDICAID, OTHER, SELFPAY | PROVIDERS: PCP Family Medicine; Visit Provider Specialist | DX: G43.711 Chronic migraine without aura, intractable, with status migrainosus (principal) | CPT/HCPCS: 64615 ==

== ENCOUNTER 2024-05-13 08:42 | Outpatient (CLI) | payer MEDICARE, MEDICAID, SELFPAY ==
--- NOTE | 2024-05-13 08:46 | MM_ITS ---
WS: [id number] BILATERAL SCREENING DIGITAL TOMOSYNTHESIS MAMMOGRAM WITH CAD HISTORY: SCREEN COMPARISON: 05/10/2023, 05/09/2022, 05/13/2021 Bilateral CC and MLO views with tomosynthesis and synthetic mammography submitted. Computer aided det ection analyzed. Breast composition: The breasts are heterogeneously dense, which may obscure small masses. No suspici ous masses, microcalcifications or architectural distortion. Several stable masses in the LEFT breast over multiple prior years are reidentified. There are scattered calcifications in each breast. No zaldivar spicious mass or distortion. MM/MM scr BI tomosynthesis [id number] IMPRESSION: BI-RADS: 2 - Benign FOLLOW UP: 1 Year Follow-up
== END 2024-05-13 08:43 | disposition home or self-care (01) ==
LOC: RAD 08:45
PROVIDERS: PCP Family Medicine; Visit Provider Family Medicine
DX: Z12.31 Encounter for screening mammogram for malignant neoplasm of breast (principal); R92.333 Mammographic heterogeneous density, bilateral breasts; R92.1 Mammographic calcification found on diagnostic imaging of breast; N63.20 Unspecified lump in the left breast, unspecified quadrant
CPT/HCPCS: 77063; 77067

== ENCOUNTER → 2024-06-21 07:55 | Outpatient (BNVA) | payer MEDICARE, MEDICAID, SELFPAY | PROVIDERS: PCP Family Medicine; Visit Provider Specialist | DX: G43.711 Chronic migraine without aura, intractable, with status migrainosus (principal) | CPT/HCPCS: 64615; J0585 ==

== ENCOUNTER → 2024-08-22 09:24 | Outpatient (BNVA) | payer MEDICARE, MEDICAID, SELFPAY | PROVIDERS: PCP Family Medicine; Visit Provider Nurse Practitioner Family | DX: B35.3 Tinea pedis (principal); L81.4 Other melanin hyperpigmentation; D22.5 Melanocytic nevi of trunk; L82.1 Other seborrheic keratosis; W89.1XXA Exposure to tanning bed, initial encounter; D48.5 Neoplasm of uncertain behavior of skin; L57.0 Actinic keratosis | CPT/HCPCS: 11102; 17000; 99204 ==

== ENCOUNTER → 2024-09-11 13:46 | Outpatient (BNVA) | payer MEDICARE, MEDICAID, SELFPAY | PROVIDERS: PCP Family Medicine; Visit Provider Dermatology | DX: C44.519 Basal cell carcinoma of skin of other part of trunk (principal) | CPT/HCPCS: 11602; 13101 ==

== ENCOUNTER → 2024-09-20 08:06 | Outpatient (BNVA) | payer MEDICARE, MEDICAID, SELFPAY | PROVIDERS: PCP Family Medicine; Visit Provider Specialist | DX: G43.711 Chronic migraine without aura, intractable, with status migrainosus (principal) | CPT/HCPCS: 64615; J9999 ==

== ENCOUNTER → 2024-10-29 09:24 | Outpatient (BNVA) | payer MEDICARE, OTHER, SELFPAY | PROVIDERS: PCP Family Medicine; Visit Provider Nurse Practitioner | DX: Z79.899 Other long term (current) drug therapy (principal) | CPT/HCPCS: 80061; 83036 ==

== ENCOUNTER → 2024-12-19 08:02 | Outpatient (BNVA) | payer MEDICARE, MEDICAID, SELFPAY | PROVIDERS: PCP Family Medicine; Visit Provider Specialist | DX: G43.711 Chronic migraine without aura, intractable, with status migrainosus (principal) | CPT/HCPCS: 64615; J9999 ==

== ENCOUNTER → 2025-02-19 09:33 | Outpatient (BNVA) | payer MEDICARE, MEDICAID, OTHER, SELFPAY | PROVIDERS: Visit Provider Nurse Practitioner Family | DX: L82.1 Other seborrheic keratosis (principal); W89.1XXA Exposure to tanning bed, initial encounter; L81.4 Other melanin hyperpigmentation; Z08 Encounter for follow-up examination after completed treatment for malignant neoplasm; Z85.828 Personal history of other malignant neoplasm of skin; L57.0 Actinic keratosis | CPT/HCPCS: 17000; 99213 ==

== ENCOUNTER 2025-02-25 08:53 | Outpatient (RCR) | payer MEDICARE, MEDICAID, SELFPAY | END 2025-03-23 23:59 | disposition home or self-care (01) | LOC: SPT 08:53 | PROVIDERS: Visit Provider Surgery | DX: N39.41 Urge incontinence (principal) | CPT/HCPCS: 97110; 97161; 97530 ==

== ENCOUNTER 2025-03-24 05:00 | Outpatient (RCR) | payer MEDICARE, MEDICAID, SELFPAY | END 2025-04-23 23:59 | disposition home or self-care (01) | LOC: SPT 05:00 | PROVIDERS: Visit Provider Surgery | DX: N39.41 Urge incontinence (principal) | CPT/HCPCS: 97110; 97530 ==

== ENCOUNTER → 2025-03-27 13:14 | Outpatient (BNVA) | payer MEDICARE, SELFPAY | PROVIDERS: Visit Provider Specialist | DX: G43.711 Chronic migraine without aura, intractable, with status migrainosus (principal) | CPT/HCPCS: 64615; J9999 ==